=== PATIENT | male | born 1965 | race Caucasian/White ===

== ENCOUNTER 2017-03-30 19:35 | Emergency (ER) | payer OTHER ==
[~2017-03-30] VITALS: Ht 180.3 cm; Wt 111.4 kg
[~2017-03-30 19:35] MED LIST: DIFL500T PO; METH750T2 PO; Z.0.NO CURRENT MEDS
[2017-03-30 19:45] VITALS: BP 150/100; PULSE 113; RESP 16; TEMP 97.9; O2SAT 96
[2017-03-30] MEDS ORDERED: SUBO8MIS SL ×2 (20:01→23:14)
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
[2017-03-30] MEDS ORDERED: KETOROLAC TROMETHAMINE 60 MG/2 ML (IM) VIAL IM ONE (22:30)
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
[2017-03-30 23:06] LABS: POTASSIUM 4.4 MEQ/L (3.5-5.1)
[2017-03-30 23:09] LABS: BICARBONATE 25.1 MEQ/L (21.0-32.0)
[2017-03-30 23:12] LABS: APTT (PATIENT) 29.1 SEC (24.3-30.1); PROTHROMBIN TIME - PATIENT 10.7 SEC (9.8-11.6)
[2017-03-30 23:18] LABS: BASOPHIL % 0.3 % (0.0-2.0); EOSINOPHIL % 0.1 % (0.0-4.0); HEMATOCRIT 49.2 % (39.0-51.0); HEMO FLAGS DIFF FINAL; MEAN CELL VOLUME 90.5 FL (80.0-100.0); MEAN CORPUSCULAR HEMOGLOBIN 30.4 PG (27.0-34.0); MEAN CORPUSCULAR HGB CONC 33.5 % (32.0-36.0); MONO % 4.4 % (0.0-8.0); NEUT % 81.2 % (16.0-70.0); PLATELET COUNT 378 TH/MM3 (150-450); RED BLOOD COUNT 5.43 MIL/MM3 (4.50-5.90); RED CELL DISTRIBUTION WIDTH 11.8 % (11.6-17.2); WHITE BLOOD COUNT 14.6 TH/MM3 (4.0-11.0)
[2017-03-30] MEDS ORDERED: MORPHINE SULFATE 4 MG/ML INJ IV PUSH ONE (23:30)
[2017-03-30] MEDS ORDERED: SODIUM CHLORID 0.9% 500 ML INJ 500 ML IV ONE (23:30)
[2017-03-30] MEDS ORDERED: PERC5TAB12 PO (23:40)
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
[2017-03-31] VITALS: BP 156/87; PULSE 90; RESP 16; O2SAT 96
[2017-03-31 00:30] VITALS: BP 163/94; PULSE 76; RESP 16; O2SAT 96
[2017-03-31 01:05] VITALS: BP 161/86; PULSE 78; RESP 16; O2SAT 97
== END 2017-03-31 01:20 | disposition home or self-care (01) ==
LOC: PHEFT 19:35 → PHED 03-31 01:20
DX: S92.324A Nondisplaced fracture of second metatarsal bone, right foot, initial encounter for closed fracture (principal); F17.210 Nicotine dependence, cigarettes, uncomplicated; V43.52XA Car driver injured in collision with other type car in traffic accident, initial encounter; Y92.410 Unspecified street and highway as the place of occurrence of the external cause; Y99.8 Other external cause status
CPT/HCPCS: 29515; 73630; 73700; 80048; 85025; 85610; 85730; 96361; 96372; 96374; 99285; E0113; J1885; J2270; J7040